=== PATIENT | female | born 1990 | race Two or more races ===

== ENCOUNTER 2025-04-26 10:01 | Emergency (ER) | payer OTHER ==
[~2025-04-26] VITALS: Ht 154.9 cm; Wt 42.6 kg
[2025-04-26 10:36] VITALS: BP 93/64; O2SAT 99
[2025-04-26] MEDS ORDERED: ZOFRAN8 MG (10:38)
[2025-04-26] MEDS ORDERED: PEPCID AC20 MG PO (10:38)
[2025-04-26] MEDS ORDERED: FAMOtidine 10 MG/ML (4ML VIAL) IV ONE (11:00)
[2025-04-26] MEDS ORDERED: ONDANSETRON HCL 2 MG/ML VIAL IV ONE (11:00)
[2025-04-26] MEDS ORDERED: 0.9 % SODIUM CHLORIDE 1,000 ML IV ONE (11:00)
[2025-04-26 12:47] LABS: BASO % 0.2 % (0.1-1.2); EOS # 0.02 (0.04-0.54); EOS % 0.2 % (0.7-7.0); LYMPH # 0.99 (1.18-3.74); LYMPH % 8.5 % (19.3-53.1); MEAN PLATELET VOLUME 9.40 fl (9.4-12.4); MONO # 0.43 (0.24-0.82); MONO % 3.7 % (4.7-12.5); NEUT # 10.10 (1.56-6.13); NEUT % 87.1 % (34.0-71.1); RED CELL DISTRIBUTION WIDTH 12.6 % (11.6-14.4)
[2025-04-26 13:24] LABS: ALT/SGPT 19.0 U/L (12-78); AST/SGOT 11.0 U/L (15-37); BILIRUBIN TOTAL 0.5 mg/dL (0.3-1.2); BUN CREA RATIO 13.0 (7.0-25.0); CREATININE SERUM 0.48 mg/dL (0.55-1.02); GFR 149.88; GLOBULINA 3.8 G/DL (2.4-3.5); GLUCOSE FASTING 103.0 mg/dL (65-100); OSMOLALITY SERUM 270.0 MOSM/KG (275-295)
[2025-04-26 13:25] LABS: HCG QUANTITATIVE 83378.0 mUI/mL (1-3)
[2025-04-26 14:24] LABS: COVID-19 AG NEGATIVE (NEGATIVE)
[2025-04-26] MEDS ORDERED: ACETAMINOPHEN 325 MG TABLET PO ONE (14:30)
[2025-04-26] MEDS ORDERED: PROMETHAZINE HCL 25 MG/ML AMPUL IM ONE (14:45)
[2025-04-26] MEDS ORDERED: ZOFRAN8 MG PO (15:18)
== END 2025-04-26 15:57 | disposition home or self-care (01) ==
LOC: ER 10:01
PROVIDERS: General Practice
DX: O21.0 Mild hyperemesis gravidarum (principal); Z3A.12 12 weeks gestation of pregnancy; Z20.822 Contact with and (suspected) exposure to COVID-19; Z91.013 Allergy to seafood